=== PATIENT | female | born 1970 | race Caucasian/White ===

== ENCOUNTER → 2016-11-02 | Outpatient (CLI) | payer BC ==
[2016-11-06 14:06] LABS: HPV 16 Not Detected (NOTDET); HPV 18 Not Detected (NOTDET)
== END ==
LOC: MW.CHOBGYN 16:00
PROVIDERS: ATTEND Obstetrics & Gynecology
DX: Z12.4 Encounter for screening for malignant neoplasm of cervix (principal)
CPT/HCPCS: 87624; G0145

== ENCOUNTER 2022-05-29 20:10 | Emergency (ER) | payer BC ==
[2022-05-29] MEDS ORDERED: Acetaminophen 500 MG Tab PO ONE (21:21)
== END 2022-05-29 22:16 | disposition home or self-care (01) ==
LOC: MW.ED 20:10
DX: S82.61XA Displaced fracture of lateral malleolus of right fibula, initial encounter for closed fracture (principal); X50.1XXA Overexertion from prolonged static or awkward postures, initial encounter
CPT/HCPCS: 29515; 73610-26-RT; 73610-RT; 99283-25